=== PATIENT | female | born 1990 | race Two or more races ===

== ENCOUNTER 2017-04-02 10:29 | Day surgery (SDC) | payer OTHER ==
[~2017-04-02] VITALS: Ht 160 cm; Wt 77.2 kg
[~2017-04-02 10:29] MED LIST: DEPO-PROVER150 MG/ML IM; Depo-Provera; FIORICET WI1 CAPSULE PO; FIORICET,ESG1 TABLET PO; KEFLEX500 MG PO; MECLIZINE HCL25 MG PO; MEDROL DOSEPAK4 MG PO; MOTRIN800 MG PO; Motrin PO; NAPROSYN500 MG PO; NOHOMEMEDS; NORCO 5/3251 TABLET PO; POLYTRIM EYE DR10 ML BOTH EYES; PRILOSEC40 MG PO; VICODIN 5-3001 EACH PO; XARELTO1 EACH PO; ZOFRAN4 MG PO
[2017-04-02 10:55] VITALS: BP 113/76
[2017-04-02 11:22] LABS: MCH 29.1 PG (29.0-34.0); MCHC 33.8 G/DL (30.0-36.0); MCV 86.2 FL (83-99); PLATELET COUNT 282 K/uL (156-360); RBC DIS.WIDTH-CV 13.3 % (11.8-14.6); RED BLOOD COUNT 5.22 M/uL (3.80-5.20); WHITE BLOOD COUNT 9.7 K/uL (4.1-10.2)
[2017-04-02] MEDS ORDERED: DOXYCYCLINE HY100 M3 PO (12:23)
[2017-04-02] MEDS ORDERED: IBUPROFEN800 MG PO (12:24)
[2017-04-02] MEDS ORDERED: Methergine PO (12:27)
[2017-04-02 13:10] VITALS: BP 128/83
[2017-04-02 14:19] VITALS: BP 105/68
== END 2017-04-02 14:30 | disposition home or self-care (01) ==
LOC: SDC 10:29
PROVIDERS: Anesthesiology
PROC: 10D17ZZ Extraction of Products of Conception, Retained, Via Natural or Artificial Opening (ICD-10-PCS; principal; 2017-04-02)
DX: O02.1 Missed abortion (principal); Z3A.08 8 weeks gestation of pregnancy; J45.909 Unspecified asthma, uncomplicated; K21.9 Gastro-esophageal reflux disease without esophagitis; F17.210 Nicotine dependence, cigarettes, uncomplicated; Z86.718 Personal history of other venous thrombosis and embolism
CPT/HCPCS: 85027; 86850; 86900; 86901; 88305; J1100; J2250; J2405; J3010